=== PATIENT | male | born 1980 | race Caucasian/White ===

== ENCOUNTER 2018-03-12 11:55 | Emergency (ER) | payer OTHER ==
[~2018-03-12] VITALS: Ht 180.3 cm; Wt 77.3 kg
[2018-03-12] MEDS ORDERED: GABA-531 PO (12:03)
[2018-03-12] MEDS ORDERED: VENL50TA44 PO (12:03)
[2018-03-12] MEDS ORDERED: VENL-68 PO (12:04)
[2018-03-12] MEDS ORDERED: ChlordiazePOXIDE HCL 25 MG CAPSULE PO ONE (13:30)
[2018-03-12] MEDS ORDERED: GABAPENTIN 300 MG CAPSULE PO ONE (13:30)
[2018-03-12] MEDS ORDERED: VENLAFAXINE HCL 150 MG ER CAPSULE PO ONE (13:30)
[2018-03-12 14:13] VITALS: BP 144/79
== END 2018-03-12 14:32 | disposition home or self-care (01) ==
LOC: EMS 11:57
DX: F10.239 Alcohol dependence with withdrawal, unspecified (principal); F41.9 Anxiety disorder, unspecified; F32.9 Major depressive disorder, single episode, unspecified; F17.210 Nicotine dependence, cigarettes, uncomplicated
CPT/HCPCS: 99406